=== PATIENT | female | born 1945 | race Caucasian/White ===

== ENCOUNTER 2025-01-18 10:22 | Outpatient (RCR) | payer MEDICARE, MEDICAID, SELFPAY ==
--- NOTE | 2025-01-18 11:53 | PTNOTE_ITS ---
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 Pt has not walked for ~ 1.5 years. Pt require max assist with transfer and getting in/out of bed as well as with ADLs. Pt no longer notice back pain; Pt is more concerns about her overall functionality. Pt wears a special splint up to her knees daily except when she sleeps at night. Objective: L/S AROM (in sitting): all motions are WFL Hip AROM: all motions are limited with pain Hip and BLE MMTs: grossly 2-/5 Sit-Stand: unable Assessment: Pt demonstrate decrease BLE strength, decondition, and overall mobility leading to inability to ambulate and perform ADLs independently. At this time Pt will not benefit from outpatient physical therapy due to severity of BLE weakness and max assist with ADLs. Recommend patient to attempt homehealth physical therapy first to regain some strength and work on household ambulation, transfer, and bed mobility prior to attempting outpatient physical therapy successfully. Pt gave verbal understanding and will follow up with MD next week. Pt was evaluated and d/c from care; thank you for your referrals. Short Term and Nursing Home Goals 1) Eval and D/C 2) Follow up with MD 3) Recommend homehealth PT Treatment Plan Frequency and Duration: 1x Certification Dates: 01/18/25 to 04/19/25 Procedure Charges OP PT Eval Mod Complex 30 minutes: Yes
== END 2025-02-15 23:59 | disposition home or self-care (01) ==
LOC: CPTX 10:22
PROVIDERS: PCP Registered Nurse Community Health; Referring Provider Physical Medicine & Rehabilitation Pain Medicine; Visit Provider Physical Medicine & Rehabilitation Pain Medicine
DX: M54.50 Low back pain, unspecified (principal); R26.2 Difficulty in walking, not elsewhere classified
CPT/HCPCS: 97162